=== PATIENT | male | born 1985 | race Caucasian/White ===

== ENCOUNTER 2020-09-21 14:21 | Emergency (ER) | payer OTHER ==
[~2020-09-21] VITALS: Ht 170.2 cm; Wt 95.3 kg
[2020-09-21] MEDS ORDERED: PROPRANOLOL HCL40 MG PO (14:54)
[2020-09-21] MEDS ORDERED: CLOZAPINE100 MG PO (14:54)
[2020-09-21] MEDS ORDERED: ABILIFY5 MG PO ×2 (14:56→15:05)
== END 2020-09-21 15:21 | disposition home or self-care (01) ==
LOC: ED 14:21
DX: Z76.0 Encounter for issue of repeat prescription (principal); F17.200 Nicotine dependence, unspecified, uncomplicated; Z79.899 Other long term (current) drug therapy
CPT/HCPCS: 99281